=== PATIENT | male | born 1965 | race Two or more races ===

== ENCOUNTER 2024-08-29 08:31 | Outpatient (REF) | payer OTHER, SELFPAY ==
[2024-08-29 08:55] LABS: MANUAL DIFF FLAG NO
[2024-08-29 09:40] LABS: Basophils Percent Auto 0.8 % (0-2); Eosinophils Absolute Auto 0.1 X10*3/uL (0.0-0.4); Eosinophils Percent Auto 3.6 % (0-4); Hematocrit 44.3 % (42.0-52.0); Hemoglobin 14.8 g/dl (14.0-18.0); Imm Gran Abs Auto 0.02 X10*3/uL (0.00-0.03); Imm Gran Pct Auto 0.5 % (0.0-0.4); Lymphocytes Absolute Auto 1.5 X10*3/uL (1.2-4.9); Lymphocytes Percent Auto 37.3 % (20-40); Mean Corpuscular HGB Conc 33.4 g/dl (31.0-36.0); Mean Corpuscular Hemoglobin 30.3 pg (27.0-33.0); Mean Corpuscular Volume 90.8 fL (80.0-98.0); Mean Platelet Volume 9.7 fL (9.4-12.4); Monocytes Absolute Auto 0.6 X10*3/uL (0.1-1.2); Monocytes Percent Auto 15.2 % (2-11); Neutrophils Absolute Auto 1.7 x10*3/uL (2.0-8.3); Neutrophils Percent Auto 42.6 % (45-73); Platelet Count 262 X10*3/uL (160-400); Red Blood Count 4.88 X10*6/uL (4.60-5.80); Red Cell Distribution Width 12.8 % (11.0-16.0); White Blood Count 3.9 X10*3/uL (4.8-10.8)
[2024-08-29 10:53] LABS: Prostate Specific Antigen Scr 1.19 ng/mL (<0.05-4.0)
[2024-08-29 11:22] LABS: Alanine Aminotransferase 20 U/L (0-40); Albumin Level 4.3 g/dL (3.5-5.0); Alkaline Phosphatase 78 U/L (39-117); Anion Gap 10 (12-20); Aspartate Amino Transferase 25 U/L (5-37); Bilirubin Total 0.9 mg/dL (0.0-1.0); Blood Urea Nitrogen 17 mg/dL (9-16); Calcium 9.3 mg/dL (8.4-10.2); Carbon Dioxide 26 mmol/L (22-29); Chloride 109 mmol/L (96-108); Cholesterol 144 mg/dL (<200); Estimated Glomerular Filt Rate > 60; Glucose Random 102 mg/dL (60-115); HDL Cholesterol 36 mg/dL (>40); LDL Cholesterol Calculated 96 mg/dL (<100); Potassium 4.4 mmol/L (3.3-5.1); Sodium 141 mmol/L (135-145); Total Protein 7.6 g/dL (6.5-8.0); Triglycerides 61 mg/dL (<150)
== END 2024-08-29 08:32 | disposition home or self-care (01) ==
LOC: HO.LAB 08:31
PROVIDERS: PCP Internal Medicine; Visit Provider Internal Medicine
DX: Z00.01 Encounter for general adult medical examination with abnormal findings (principal); I10 Essential (primary) hypertension; M54.9 Dorsalgia, unspecified; N30.00 Acute cystitis without hematuria; Z12.5 Encounter for screening for malignant neoplasm of prostate; Z13.31 Encounter for screening for depression
CPT/HCPCS: 36415; 80053; 80061; 84153; 85025; 87086

== ENCOUNTER 2024-12-11 06:34 | Outpatient (REF) | payer OTHER, SELFPAY ==
[2024-12-11 08:08] LABS: Alanine Aminotransferase 24 U/L (0-40); Albumin Level 4.7 g/dL (3.5-5.0); Alkaline Phosphatase 92 U/L (39-117); Anion Gap 12 (12-20); Aspartate Amino Transferase 27 U/L (5-37); Blood Urea Nitrogen 19 mg/dL (9-16); Calcium 9.4 mg/dL (8.4-10.2); Carbon Dioxide 26 mmol/L (22-29); Chloride 106 mmol/L (96-108); Estimated Glomerular Filt Rate > 60; Potassium 4.3 mmol/L (3.3-5.1); Sodium 140 mmol/L (135-145); Total Protein 7.6 g/dL (6.5-8.0)
== END 2024-12-11 06:35 | disposition home or self-care (01) ==
LOC: HO.LAB 06:34
PROVIDERS: PCP Internal Medicine; Visit Provider Internal Medicine
DX: I10 Essential (primary) hypertension (principal); K21.9 Gastro-esophageal reflux disease without esophagitis
CPT/HCPCS: 36415; 80053

== ENCOUNTER 2025-03-06 14:07 | Outpatient (AMB) | payer OTHER, SELFPAY ==
--- NOTE | 2025-03-06 14:14 | A.OFFVIS_ITS ---
Intake Visit Reasons: difficulty with urination Intake Note: patient presents today for: new patient with urinary difficulties urology medications: none blood thinners: none labs done 08/29/24: PSA 1.19 today's PVR: 0mls [employer] Specialist Required: Yes Accompanied by: Self / Same As Patient Allergies No Known Allergies Allergy (Verified 03/06/25 14:15) HPI Comments Details: Primary issue was fluid status. Uses hydrochlorothiazide. Had come off medication and now has ankle swelling Recommend he restart medication Office Procedures Post Void Residual Post Residual Void Post Void Residual (PVR): 0 [id number] Void Residual by ultrasound Results AMB Urinalysis, Automated UA Leukoctes 0 Tu/uL Last Edit by ZOIE Rothman on 03/06/25 16:16 UA Nitrite Last Edit by ZOIE Rothman on 03/06/25 16:16 UA Urobilinogen 0.2 mg/dL Last Edit by ZOIE Rothman on 03/06/25 16:1 6 UA Protein 15 mg/dL Last Edit by ZOIE Rothman on 03/06/25 16:16 UA pH 7.0 Last Edit by ZOIE Rothman on 03/06/25 16:16 UA Blood 0 Sahil/uL Last Edit by ZOIE Rothman on 03/06/25 16:16 UA Specific [place] 1.015 Last Edit by ZOIE Rothman on 03/06/25 16: 16 UA Ketone Last Edit by ZOIE Rothman on 03/06/25 16:16 UA Bilirubin 0 mg/dL Last Edit by ZOIE Rothman on 03/06/25 16:16 UA Glucose 0 mg/dL Last Edit by ZOIE Rothman on 03/06/25 16:16 Assessment & Plan Assessment & Plan (1) Frequent urination at night: Code(s): R35.1 - Nocturia Category: Medical Orders: Orders AMB Urinalysis Automated Today Z13.9 - Encounter for screening, unspecified AMB Post Void Residual by ultrasound Today R35.1 - Nocturia Patient Instructions: This note is constructed using voice recognition software. While every effort has been made to ensure accuracy optical effects layout person errors may have been included. Imaging studies, laboratory and physical exam results were discussed and reviewed in detail. No major barriers to patient understanding were identified. An opportunity to ask questions regarding the treatment plan was provided. All questions were answered. The patient expressed understanding and agreement with the above treatment plan. The patient is aware they should contact our office by phone for worsening of their current condition or the appearance of new urologic symptoms. Compliance is encouraged with any medications and followup testing that is ordered. It is a privilege to participate in the urologic care of your patient. If you have any questions or concerns regarding treatment for the above conditions, or other urologic issues, please do not hesitate to contact me. The office telephone contact is [phone]. Sincerely, Dr Rishi Licona MD, [facility] - Urology Compassionate Specialist Care for the Genitourinary System Coding Diagnoses Frequent urination at night R35.1 CPT Codes Post Residual Void - PVR CPT Code: 54366-[id number] Void Residual by ultrasound ([id number])
== END 2025-03-06 14:47 | disposition home or self-care (01) ==
LOC: HO.HUSH 14:08
PROVIDERS: PCP Internal Medicine; Visit Provider Urology
DX: Z13.9 Encounter for screening, unspecified (principal)

== ENCOUNTER → 2025-03-06 14:07 | Outpatient (BNVA) | payer OTHER, SELFPAY | PROVIDERS: PCP Internal Medicine; Visit Provider Urology | DX: R35.1 Nocturia (principal) | CPT/HCPCS: 51798; 81003 ==